=== PATIENT | male | born 1985 | race Caucasian/White ===

== ENCOUNTER 2017-08-11 08:31 | Emergency (ER) | payer MEDICAID ==
[2017-08-11] MEDS ORDERED: NORMAL SALINE 1000 ML 1,000 ML IV ONE (08:45)
--- NOTE | 2017-08-11 09:18 | RADIOLOGY REPORT (SQ) ---
EXAM DESCRIPTION: CT HEAD WITHOUT COMPLETED DATE/TIME: 08/11/2017 9:09 am REASON FOR STUDY: sz head injury COMPARISON: None. TECHNIQUE: Axial images acquired through the brain without intravenous contrast. Images reviewed wi th bone, brain and subdural windows. Images stored on PACS. All CT scanners at this facility use dose modulation, iterative reconstruction, and/or weight based d osing when appropriate to reduce radiation dose to as low as reasonably achievable (ALARA). [facility]: Dose Right [facility]: CareDose [facility]: Dose Right [facility]: Teradose 4D [facility]: [employer] RADIATION DOSE: Up-to-date CT equipment and radiation dose reduction techniques were employed. CTDIv ol: 64.6 mGy. DLP: 1163 mGy-cm. mGy. LIMITATIONS: Motion artifact FINDINGS: Motion artifact on today's study. On the images without motion, there is no gross CT evid ence of large territory acute ischemic change, acute intracranial hemorrhage, mass effect, or midline shift. Bone windows demonstrate minimal inflammatory change in the left frontal and right ethmoid air cells. No acute calvarial fracture. IMPRESSION: Motion artifact. Limited negative study. EVIDENCE OF ACUTE STROKE: NO. COMMENT: Quality ID # [id number]: Final reports with documentation of one or more dose reduction techniques (e.g., Automated exposure control, adjustment of the mA and/or kV according to patient size, use of iterative reconstruction technique) TECHNICAL DOCUMENTATION: JOB ID: [id number] [employer]- All Rights Reserved
[2017-08-11 09:19] LABS: ABSOLUTE EOSINOPHILS # (AUTO) 0.3 10^3/uL (0.0-0.6); ABSOLUTE LYMPHOCYTES (AUTO) 1.2 10^3/uL (0.5-4.7); ABSOLUTE MONOCYTES (AUTO) 0.5 10^3/uL (0.1-1.4); ABSOLUTE NEUT (AUTO) 6.2 10^3/uL (1.7-8.2); BASOPHILS % (AUTO) 0.5 % (0-2); EOSINOPHILS % (AUTO) 3.1 % (0-6); HEMATOCRIT 44.6 % (37.9-51.0); HEMOGLOBIN 15.4 g/dL (13.5-17.0); HGB HCT DIFFERENCE 1.6; LYMPHOCYTES % (AUTO) 14.7 % (13-45); MEAN CORPUSCULAR HEMOGLOBIN 31.5 pg (27.0-33.4); MEAN CORPUSCULAR HGB CONC 34.6 g/dL (32.0-36.0); MEAN CORPUSCULAR VOLUME 91 fl (80-97); MONOCYTES % (AUTO) 5.6 % (3-13); RED CELL DISTRIBUTION WIDTH 12.8 % (11.5-14.0); SEGMENTED NEUTROPHILS % (AUTO) 76.1 % (42-78); WHITE BLOOD COUNT 8.2 10^3/uL (4.0-10.5)
[2017-08-11] MEDS ORDERED: PROCHLORPERAZINE EDISYLATE INJ 10 MG/2 ML VIAL IV ONE (09:27)
[2017-08-11] MEDS ORDERED: ONDANSETRON HCL INJ/PF 4 MG/2 ML SDV IV ONE (09:27)
[2017-08-11 09:43] LABS: ALANINE AMINOTRANSFERASE 23 U/L (21-72); ALBUMIN 4.4 g/dL (3.5-5.0); ALKALINE PHOSPHATASE 98 U/L (38-126); ANION GAP 9 (5-19); ASPARTATE AMINO TRANSFERASE 26 U/L (17-59); BILIRUBIN,DIRECT 0.5 mg/dL (0.0-0.4); BILIRUBIN,TOTAL 0.7 mg/dL (0.2-1.3); BLOOD UREA NITROGEN 12 mg/dL (7-20); CALCIUM 9.4 mg/dL (8.4-10.2); CARBON DIOXIDE 30 mmol/L (22-30); CHLORIDE 103 mmol/L (98-107); CREATININE RESULT 0.96 mg/dL (0.52-1.25); GLUCOSE 90 mg/dL (75-110); LIPASE 50.2 U/L (23-300); POTASSIUM 4.6 mmol/L (3.6-5.0); SODIUM 142.1 mmol/L (137-145); TOTAL PROTEIN 7.1 g/dL (6.3-8.2)
[2017-08-11 09:44] LABS: ALCOHOL < 10 mg/dL (NONE DETECTED)
[2017-08-11] MEDS ORDERED: DIPHENHYDRAMINE HCL 50 MG/ML VIAL IV ONE (09:58)
--- NOTE | 2017-08-11 10:18 | ER Document Report ---
ED General - General Chief Complaint: Head Injury Stated Complaint: FALL HEAD INJURY Time Seen by Provider: 08/11/17 08:43 TRAVEL OUTSIDE OF THE [place]. IN LAST 30 DAYS: No - HPI Patient complains to provider of: Seizure head injury Notes: Patient coming in for evaluation of a seizure. Seizure was witnessed by the . states patient was standing in the kitchen when he fell to the ground having generalized jerking movement patient was not responding to her verbally during the episode. States lasted for approximately 2-3 minutes. Patient states has a history of seizures patient is not on any antiepileptic medication patient states TBI after returning from [place] is when his seizure started. Patient has never had an EEG or seen a neurologist. Patient currently is not postictal complains of a posterior headache where he hit the floor. Patient denies any fever chills nausea vomiting diarrhea. Patient denies any smoking alcohol or drug abuse. - Related Data Allergies/Adverse Reactions: No Known Allergies Allergy (Verified 01/31/17 13:31) Past Medical History - Social History Smoking Status: Never Smoker Chew tobacco use (# tins/day): Yes - occasionally Frequency of alcohol use: Occasional Drug Abuse: None Family History: Reviewed & Not Pertinent Renal/ Medical History: Denies: Hx Peritoneal Dialysis Past Surgical History: Reports: Hx Oral Surgery - Immunizations Hx Diphtheria, Pertussis, Tetanus Vaccination: Yes Review of Systems - Review of Systems Constitutional: No symptoms reported EENT: No symptoms reported Cardiovascular: No symptoms reported Respiratory: No symptoms reported Gastrointestinal: No symptoms reported Genitourinary: No symptoms reported Male Genitourinary: No symptoms reported Musculoskeletal: No symptoms reported Skin: No symptoms reported Hematologic/Lymphatic: No symptoms reported Neurological/Psychological: Seizure, Headaches -: Yes All other systems reviewed and negative Physical Exam - Vital signs Vitals: Temp Pulse Resp BP Pulse Ox 98.3 F 61 18 134/82 H 100 08/11/17 08:35 08/11/17 08:35 08/11/17 08:35 08/11/17 08:35 08/11/17 08:35 Interpretation: Normal - General General appearance: Appears well, Alert - HEENT Head: Normocephalic, Atraumatic Eyes: Normal Pupils: PERRL - Respiratory Respiratory status: No respiratory distress Chest status: Nontender Breath sounds: Normal Chest palpation: Normal - Cardiovascular Rhythm: Regular Heart sounds: Normal auscultation Murmur: No - Abdominal Inspection: Normal Distension: No distension Bowel sounds: Normal Tenderness: Nontender Organomegaly: No organomegaly - Back Back: Normal, Nontender - Extremities General upper extremity: Normal inspection, Nontender, Normal color, Normal ROM , Normal temperature General lower extremity: Normal inspection, Nontender, Normal color, Normal ROM , Normal temperature, Normal weight bearing. No: Hermelinda's sign - Neurological Neuro grossly intact: Yes Cognition: Normal Orientation: AAOx4 [place] Coma Scale Eye Opening: Spontaneous [place] Coma Scale Verbal: Oriented [place] Coma Scale Motor: Obeys Commands [place] Coma Scale Total: 15 Speech: Normal Motor strength normal: LUE, RUE, LLE, RLE Sensory: Normal - Psychological Associated symptoms: Normal affect, Normal mood - Skin Skin Temperature: Warm Skin Moisture: Dry Skin Color: Normal Course - Re-evaluation Re-evalutation: 08/11/17 14:30 Breakthrough seizure with known seizure disorder and previous neurology evaluation. Now returned to neuro baseline. Labs reviewed. No indication of new or acute process. Patient appears safe for discharge with observation and close outpatient F/U with PCP or neurology. Seizure warnings discussed with patient / family. Patient was given Compazine and Zofran for his headache. Patient after receiving the Compazine to become agitated did receive Benadryl. No concerning etiology and did explain to the patient his need to follow-up with neurology for specific testing. After discharge patient CDS to return showing positive for cocaine and marijuana possible underlying etiology for the patient' s symptoms. - Vital Signs Vital signs: Temp Pulse Resp BP Pulse Ox 98.3 F 61 17 126/66 H 99 08/11/17 08:35 08/11/17 08:35 08/11/17 10:44 08/11/17 10:44 08/11/17 10:44 - Laboratory Result Diagrams: 08/11/17 08:56 08/11/17 08:56 Laboratory results interpreted by me: 08/11/17 08:56 Direct Bilirubin 0.5 H Discharge - Discharge Clinical Impression: Seizure, Cocaine abuse Head injury Qualifiers: Encounter type: initial encounter Qualified Code(s): S09.90XA - Unspecified injury of head, initial encounter Condition: Good Disposition: HOME, SELF-CARE Instructions: Head Injury Precautions ([facility]), Neurologist, New Seizure ([facility]), Seizure, Known Epileptic ([facility]) Additional Instructions: At this time your head CT laboratory studies not show any signs of concerning pathology. I would highly recommend she follow-up with your primary care physician and neurologist for further evaluation of your symptoms. Prescriptions: Ondansetron [Zofran Odt 4 mg Tablet] 1 - 2 tab PO Q4H PRN #15 tab.rapdis PRN Reason: For Nausea/Vomiting Referrals: RADHA JOHNSON DO [Primary Care Provider] - Follow up as needed
[2017-08-11 10:27] LABS: APPEARANCE,URINE CLEAR; BILIRUBIN,URINE NEGATIVE (NEGATIVE); GLUCOSE, URINE NEGATIVE (NEGATIVE); KETONES,URINE NEGATIVE (NEGATIVE); LEUKOCYTE ESTERASE,URINE NEGATIVE (NEGATIVE); NITRITE,URINE NEGATIVE (NEGATIVE); PROTEIN,URINE NEGATIVE (NEGATIVE); URINE SPECIFIC GRAVITY 1.006; UROBILINOGEN,URINE NEGATIVE mg/dL (<2.0)
[2017-08-11 10:43] LABS: URINE BARBITURATES SCREEN NEGATIVE; URINE METHADONE SCREEN NEGATIVE; URINE OPIATES LOW NEGATIVE; URINE PHENCYCLIDINE SCREEN NEGATIVE
[2017-08-11 10:48] VITALS: BP 126/66
== END 2017-08-11 10:48 | disposition home or self-care (01) ==
LOC: ER 08:31
DX: G40.909 Epilepsy, unspecified, not intractable, without status epilepticus (principal); S09.90XA Unspecified injury of head, initial encounter; R51 Headache; W18.39XA Other fall on same level, initial encounter; Y93.89 Activity, other specified; F14.10 Cocaine abuse, uncomplicated; R45.1 Restlessness and agitation; Z72.0 Tobacco use; Z87.820 Personal history of traumatic brain injury
CPT/HCPCS: 99284; 96361; 96374; 96375; 36415; 80307 ×2; 83690; 85025; 80053; 81001; 70450; J1200; J0780; J2405; J7030

== ENCOUNTER → 2017-09-03 | Outpatient (CLI) | payer MEDICAID ==
--- NOTE | 2017-09-03 15:14 | RADIOLOGY REPORT (SQ) ---
EXAM DESCRIPTION: MRI HEAD WITHOUT COMPLETED DATE/TIME: 09/03/2017 12:16 pm REASON FOR STUDY: POST TRAUMATIC HEADACHE G44.319 ACUTE POST-TRAUMATIC HEADACHE, NOT INTRACTABLE COMPARISON: None. TECHNIQUE: Multiplanar imaging includes non-contrasted T1, T2, FLAIR, and diffusion with ADC map seq uences. Images stored on PACS. LIMITATIONS: None. FINDINGS: ANATOMY: No anomalies. Normal vascular flow voids. Pituitary fossa normal. CSF SPACES: Normal in size and contour. No hemorrhage. CEREBRUM: Sulci and gyri normal in size and contour. Normal white matter signal on FLAIR imaging. No evidence of hemorrhage, mass, or extraaxial fluid collection. POSTERIOR FOSSA: No signal alteration. No hemorrhage. No edema, masses or mass effect. Internal dell tory canals, cerebello-pontine angles, mastoids normal. DIFFUSION IMAGING: Negative for acute or sub-acute infarction. ORBITS: No masses. Globes normal. PARANASAL SINUSES: No fluid levels. Mucosa normal. OTHER: Susceptibility Imaging-No T2* evidence of abnormal parenchymal iron deposition. IMPRESSION: NORMAL MRI OF THE BRAIN WITHOUT INTRAVENOUS GADOLINIUM CONTRAST. EVIDENCE OF ACUTE STROKE: NO. TECHNICAL DOCUMENTATION: JOB ID: [id number] [employer]- All Rights Reserved
== END ==
LOC: RAD 11:35
PROVIDERS: ATTEND Internal Medicine
DX: G44.319 Acute post-traumatic headache, not intractable (principal)
CPT/HCPCS: 70551

== ENCOUNTER 2018-11-29 08:55 | Emergency (ER) | payer MEDICAID, OTHER ==
[2018-11-29] MEDS ORDERED: FENTANYL CITRATE INJ/PF 100 MCG/2 ML AMPUL IV ONE ×2 (09:05→09:31)
--- NOTE | 2018-11-29 09:31 | ER Document Report ---
ED Fall - General Chief Complaint: Fall Stated Complaint: FALL,BILATERAL LEG FOOT INJURY Time Seen by Provider: 11/29/18 09:05 TRAVEL OUTSIDE OF THE U.S. IN LAST 30 DAYS: No - HPI Notes: Patient is a 33-year-old male that presents to the emergency department for chief complaint of bilateral foot and ankle pain. Patient fell off of scaffolding while trying to climb down. He fell a total of about 10 or 11 feet. He landed flat-footed and then sat down. He denied head injury or loss of consciousness. He denies any pain in his head, neck, chest, back, hips, pelvis or knees. He is complaining of pain in bilateral feet and ankles. The pain is sharp and severe. It is worse with movement. He denies any relieving factors. This fall occurred just prior to coming in the emergency room. He was seen in urgent care and referred to the ED for further management. He has not received any pain medication yet. Past Medical History: Negative Past Surgical History: [place] teeth removal Social History: Daily tobacco. Denies drugs and alcohol Family History: Reviewed and noncontributory for presenting illness Allergies: Reviewed, see documented allergy list. REVIEW OF SYSTEMS: CONSTITUTIONAL : No fever No chills No diaphoresis No recent illness EENT: No vision changes No congestion No sore throat CARDIOVASCULAR: No chest pain No palpitations RESPIRATORY: No shortness of breath No cough No difficulty breathing GASTROINTESTINAL: No abdominal pain No nausea No vomiting No diarrhea GENITOURINARY: No dysuria No hematuria No difficulty urinating MUSCULOSKELETAL: No back pain Bilateral foot and ankle pain No arm pain SKIN: No rashes No lesions LYMPHATIC: No swollen, enlarged glands. NEUROLOGICAL: No lightheadedness No headache No weakness No paresthesias PSYCHIATRIC: No anxiety No depression PHYSICAL EXAMINATION: Vital signs reviewed, nursing noted reviewed. GENERAL: Well-appearing, well-nourished and in no acute distress. HEAD: Atraumatic, normocephalic. EYES: Eyes appear normal, extraocular movements intact, sclera anicteric, conjunctiva are normal. ENT: nares patent, oropharynx clear without exudates. Moist mucous membranes. NECK: Normal range of motion, supple without lymphadenopathy, no midline spinal tenderness LUNGS: Breath sounds clear to auscultation bilaterally and equal. No wheezes rales or rhonchi. HEART: Tachycardic rate and regular rhythm without murmurs ABDOMEN: Soft, nontender, normoactive bowel sounds. No rebound, guarding, or rigidity. No masses appreciated. Back: No midline thoracic or lumbar tenderness, normal range of motion EXTREMITIES: Normal hips and knee exam bilaterally. Pelvis stable. +2/4 bilateral DP and PT pulses. Right ankle: Lateral malleolar tenderness and calcaneal tenderness, normal range of motion, no deformity, no midfoot or phalanx tenderness. Left ankle: Deformity, diffuse ankle joint tenderness, calcaneal tenderness, decreased range of motion, no midfoot or phalanx tenderness NEUROLOGICAL: No focal neurological deficits. Moves all extremities spontaneously Motor and sensory grossly intact on exam. PSYCH: Agitated and anxious SKIN: Warm, Dry, normal turgor, no rashes or lesions noted on exposed skin - Related data Allergies/Adverse Reactions: No Known Allergies Allergy (Verified 01/31/17 13:31) Past Medical History - Social History Smoking Status: Unknown if Ever Smoked Family History: Reviewed & Not Pertinent Patient has suicidal ideation: No Patient has homicidal ideation: No Renal/ Medical History: Denies: Hx Peritoneal Dialysis Past Surgical History: Reports: Hx Oral Surgery - Immunizations Hx Diphtheria, Pertussis, Tetanus Vaccination: Yes Course - Re-evaluation Re-evalutation: 11/29/18 09:31 Vitals reviewed. Nursing notes reviewed. Patient given fentanyl for pain and had pain, he was given a second dose of fentanyl. 11/29/18 10:20 Patient continuing to have pain but just recently received his second dose of fentanyl. He will now be given Toradol. His x-rays show bilateral calcaneal fractures 11/29/18 12:57 Patient has required multiple doses of IV pain medication, he is currently feeling better. On each of my reevaluation's patient has been able to move his back through full range of motion and is not having any spinal tenderness, he is also denying any pain in his back currently. Spinal imaging not currently indicated. I discussed his care with Dr. Cruz who feels he is going to require surgery and recommends transfer to [facility] for foot and ankle specialist. I discussed patient's care with orthopedics at [facility] who requests that patient be admitted to the trauma service. Patient's care was then discussed with Dr. Ganga Pearson who accepts patient for transfer. Patient is in agreement with this plan. He is stable for transportation currently. Discharge - Discharge Clinical Impression: Bilateral calcaneal fractures Qualifiers: Encounter type: initial encounter Fracture type: closed Qualified Code(s): S92.001A - Unspecified fracture of right calcaneus, initial encounter for closed fracture Condition: Stable Disposition: [facility] Referrals: LEDA GUTIERREZ MD [COMMUNITY BASED STAFF] - Follow up as needed
[2018-11-29] MEDS ORDERED: KETOROLAC TROMETHAMINE INJ/PF 30 MG/1 ML SDV IV ONE (09:58)
--- NOTE | 2018-11-29 10:09 | RADIOLOGY REPORT (SQ) ---
EXAM DESCRIPTION: FOOT BILATERAL 3 VIEWS; ANKLE BILATERAL 3 VIEWS MIN COMPLETED DATE/TIME: 11/29/2018 9:39 am REASON FOR STUDY: fall COMPARISON: None. NUMBER OF VIEWS: Three views. TECHNIQUE: AP, lateral and oblique radiographic images acquired of the right and left foot. LIMITATIONS: None. FINDINGS: Comminuted fractures of the calcaneus bilaterally with disruption of Boehler's angle. No other fractures identified. IMPRESSION: Bilateral calcaneal fractures. TECHNICAL DOCUMENTATION: JOB ID: [id number] [employer]- All Rights Reserved Reading location - IP/workstation name: [email or web address]
--- NOTE | 2018-11-29 10:09 | RADIOLOGY REPORT (SQ) ---
EXAM DESCRIPTION: FOOT BILATERAL 3 VIEWS; ANKLE BILATERAL 3 VIEWS MIN COMPLETED DATE/TIME: 11/29/2018 9:39 am REASON FOR STUDY: fall COMPARISON: None. NUMBER OF VIEWS: Three views. TECHNIQUE: AP, lateral and oblique radiographic images acquired of the right and left foot. LIMITATIONS: None. FINDINGS: Comminuted fractures of the calcaneus bilaterally with disruption of Boehler's angle. No other fractures identified. IMPRESSION: Bilateral calcaneal fractures. TECHNICAL DOCUMENTATION: JOB ID: [id number] [email or web address]- All Rights Reserved Reading location - IP/workstation name: [email or web address]
[2018-11-29] MEDS ORDERED: HYDROMORPHONE HCL INJ/PF 2 MG/ML AMPULE IV ONE ×3 (10:33→14:27)
[2018-11-29 15:11] VITALS: BP 143/81
== END 2018-11-29 15:10 | disposition short-term general hospital (02) ==
LOC: ER 08:55
DX: S92.001A Unspecified fracture of right calcaneus, initial encounter for closed fracture (principal); S92.002A Unspecified fracture of left calcaneus, initial encounter for closed fracture; W17.89XA Other fall from one level to another, initial encounter; Y99.0 Civilian activity done for income or pay
CPT/HCPCS: 96376; 99284; 96374; 96375; 73630; 73610; J3010; J1885; J1170

== ENCOUNTER 2020-05-03 12:33 | Emergency (ER) | payer SELFPAY ==
[2020-05-03 12:40] VITALS: BP 153/82
--- NOTE | 2020-05-03 12:49 | ER Document Report ---
ED Medical Screen (RME) - General Chief Complaint: Leg Pain Stated Complaint: RIGHT KNEE/LEG PAIN, SKIN SORE Time Seen by Provider: 05/03/20 12:41 Mode of Arrival: Wheelchair Information source: Patient Notes: 34-year-old male presented to ED for redness swelling and pain to the right knee for the last 3 days. He states he went to her primary care doctor and they told him it was herpes and put him on Valtrex. He also has sores left axilla that are not to the point that they need to be I&D but there are multiple pustules in this area. Does have a swollen possible abscess just below the right knee. I have sent him for x-rays and ordered blood cultures CBC and chemistry. I have greeted and performed a rapid initial assessment of this patient. A comprehensive ED assessment and evaluation of the patient, analysis of test results and completion of medical decision making process will be conducted by an additional ED providers. TRAVEL OUTSIDE OF THE [place]. IN LAST 30 DAYS: No - Related Data Allergies/Adverse Reactions: No Known Allergies Allergy (Verified 05/03/20 12:41) Past Medical History - Social History Chew tobacco use (# tins/day): No Frequency of alcohol use: Social Drug Abuse: None Renal/ Medical History: Denies: Hx Peritoneal Dialysis Past Surgical History: Reports: Hx Oral Surgery - Immunizations Hx Diphtheria, Pertussis, Tetanus Vaccination: Yes Physical Exam - Vital signs Vitals: Temp Pulse Resp BP Pulse Ox 98.7 F 88 16 153/82 H 99 05/03/20 12:38 05/03/20 12:38 05/03/20 12:38 05/03/20 12:38 05/03/20 12:38 Course - Vital Signs Vital signs: Temp Pulse Resp BP Pulse Ox 98.7 F 88 16 153/82 H 99 05/03/20 12:42 05/03/20 12:38 05/03/20 12:38 05/03/20 12:38 05/03/20 12:38
--- NOTE | 2020-05-03 13:26 | RADIOLOGY REPORT (SQ) ---
EXAM DESCRIPTION: KNEE RIGHT 4 VIEWS IMAGES COMPLETED DATE/TIME: 05/03/2020 11:58 am REASON FOR STUDY: Swelling redness right knee. Diffuse right knee pain. No known injury. COMPARISON: None. NUMBER OF VIEWS: Four views. TECHNIQUE: AP, lateral, and both oblique radiographic images acquired of the right knee. LIMITATIONS: None. FINDINGS: MINERALIZATION: Normal. BONES: No acute fracture or dislocation. No worrisome bone lesions. JOINT: No effusion. SOFT TISSUES: No soft tissue swelling. No radio-opaque foreign body. OTHER: No other significant finding. IMPRESSION: NEGATIVE STUDY OF THE RIGHT KNEE. NO RADIOGRAPHIC EVIDENCE OF ACUTE INJURY. TECHNICAL DOCUMENTATION: JOB ID: [id number] [employer]- All Rights Reserved Reading location - IP/workstation name: [email or web address]
[2020-05-03] MEDS ORDERED: VANCOMYCIN HCL INJ 1000 MG VIAL IV ONE (13:40)
[2020-05-03] MEDS ORDERED: AMPICILLIN SOD/SULBACTAM 3 GM VIAL IV ONE (13:41)
[2020-05-03 13:56] LABS: ABSOLUTE BASOPHILS # (AUTO) 0.1 10^3/uL (0.0-0.2); ABSOLUTE EOSINOPHILS # (AUTO) 0.2 10^3/uL (0.0-0.6); ABSOLUTE LYMPHOCYTES (AUTO) 1.5 10^3/uL (0.5-4.7); ABSOLUTE MONOCYTES (AUTO) 0.7 10^3/uL (0.1-1.4); ABSOLUTE NEUT (AUTO) 7.1 10^3/uL (1.7-8.2); BASOPHILS % (AUTO) 0.8 % (0-2); EOSINOPHILS % (AUTO) 2.5 % (0-6); HEMATOCRIT 42.3 % (37.9-51.0); LYMPHOCYTES % (AUTO) 15.9 % (13-45); MEAN CORPUSCULAR HEMOGLOBIN 32.1 pg (27.0-33.4); MEAN CORPUSCULAR HGB CONC 35.4 g/dL (32.0-36.0); MEAN CORPUSCULAR VOLUME 91 fl (80-97); MONOCYTES % (AUTO) 6.9 % (3-13); PLATELET COUNT 234 10^3/uL (150-450); RED BLOOD COUNT 4.66 10^6/uL (4.35-5.55); RED CELL DISTRIBUTION WIDTH 13.9 % (11.5-14.0); SEGMENTED NEUTROPHILS % (AUTO) 73.9 % (42-78); TOTAL CELLS COUNTED % (AUTO) 100 %; WHITE BLOOD COUNT 9.7 10^3/uL (4.0-10.5)
[2020-05-03 13:59] LABS: ALKALINE PHOSPHATASE 117 U/L (38-126); ANION GAP 9 (5-19); ASPARTATE AMINO TRANSFERASE 34 U/L (17-59); BILIRUBIN,TOTAL 0.8 mg/dL (0.2-1.3); BLOOD UREA NITROGEN 13 mg/dL (7-20); CALCIUM 9.1 mg/dL (8.4-10.2); CARBON DIOXIDE 24 mmol/L (22-30); CHLORIDE 105 mmol/L (98-107); GLUCOSE 96 mg/dL (75-110); POTASSIUM 4.8 mmol/L (3.6-5.0); TOTAL PROTEIN 6.7 g/dL (6.3-8.2)
[2020-05-03] MEDS ORDERED: HYDROCODONE/ACETAMINOPHEN 5-325 MG TABLET PO ONE (15:01)
[2020-05-03] MEDS ORDERED: HYDROMORPHONE HCL INJ/PF 2 MG/ML AMPULE IV ONE (17:03)
[2020-05-03] MEDS ORDERED: ONDANSETRON HCL INJ/PF 4 MG/2 ML SDV IV ONE (17:03)
[2020-05-03] MEDS ORDERED: HYDROCODONE/ACETAMINOPHEN 5-325 MG (6 TAB/ER DISP) PO PRN (17:22)
--- NOTE | 2020-05-03 17:23 | ER Document Report ---
Entered by GAYE LEO SCRIBE 05/03/20 [id number] Acting as scribe for:YANE LUIS DO ED General - General Chief Complaint: Knee Pain Stated Complaint: RIGHT KNEE/LEG PAIN, SKIN SORE Time Seen by Provider: 05/03/20 12:41 Mode of Arrival: Wheelchair Information source: Patient Notes: This 34 year old male patient presents to the emergency department today with pain in his right lower leg since yesterday morning. Patient reports he has noticed redness of his right lower leg for the past x3 days and the pain began yesterday. Patient states he [facility] [place] [facility] days ago. Patient states he has red bumps under his left armpit and has a history of herpes, but has not had a outbreak before. Patient states he is up to date on his tetanus vaccination. TRAVEL OUTSIDE OF THE [place] IN LAST 30 DAYS: No - Related Data Allergies/Adverse Reactions: No Known Allergies Allergy (Verified 05/03/20 12:41) Past Medical History - General Information source: Patient - Social History Smoking Status: Never Smoker Cigarette use (# per day): No Chew tobacco use (# tins/day): No Frequency of alcohol use: Social Drug Abuse: None Family History: Reviewed & Not Pertinent Patient has homicidal ideation: No Infectious Medical History: Reports: Other - Herpes Past Surgical History: Reports: Hx Oral Surgery - Immunizations Hx Diphtheria, Pertussis, Tetanus Vaccination: Yes Review of Systems - Review of Systems Constitutional: No symptoms reported EENT: No symptoms reported Cardiovascular: No symptoms reported Respiratory: No symptoms reported Gastrointestinal: No symptoms reported Genitourinary: No symptoms reported Male Genitourinary: No symptoms reported Musculoskeletal: See HPI, Other - Right lower leg pain and redness Skin: See HPI, Other - red bumps - L armpit Hematologic/Lymphatic: No symptoms reported Neurological/Psychological: No symptoms reported -: Yes All other systems reviewed and negative Physical Exam - Vital signs Vitals: Temp Pulse Resp BP Pulse Ox 98.7 F 88 16 153/82 H 99 05/03/20 12:38 05/03/20 12:38 05/03/20 12:38 05/03/20 12:38 05/03/20 12:38 - General General appearance: Appears well, Alert - HEENT Head: Normocephalic, Atraumatic Eyes: Normal Pupils: PERRL - Respiratory Respiratory status: No respiratory distress Chest status: Nontender Breath sounds: Normal Chest palpation: Normal - Cardiovascular Rhythm: Regular Heart sounds: Normal auscultation Murmur: No - Abdominal Inspection: Normal Distension: No distension Bowel sounds: Normal Tenderness: Nontender - Extremities General upper extremity: No: Edema Notes: Pustular rash under the left armpit. Erythema and soft tissue swelling of the right lower leg. Tenderness with palpation to the right lower leg. No acute deformity. - Neurological Neuro grossly intact: Yes Cognition: Normal Orientation: AAOx4 - Psychological Associated symptoms: Normal affect, Normal mood - Skin Skin Temperature: Warm Skin Moisture: Dry Skin Color: Normal Course - Re-evaluation Re-evalutation: 05/03/20 17:18 MDM 34 year old male with cellulitis right lower leg and some pustules under left arm. Leg looks like strep or staph and will treat as such. MRSA is possible and will place on bactrim. Discussed recheck in 2 days. He expressed understanding. - Vital Signs Vital signs: Temp Pulse Resp BP Pulse Ox 98.7 F 88 16 153/82 H 99 05/03/20 12:42 05/03/20 12:38 05/03/20 12:38 05/03/20 12:38 05/03/20 12:38 - Laboratory Result Diagrams: 05/03/20 13:00 05/03/20 13:00 - Diagnostic Test Radiology reviewed: Reports reviewed Discharge - Discharge Clinical Impression: Cellulitis Qualifiers: Site of cellulitis: extremity Site of cellulitis of extremity: lower extremity Laterality: right Qualified Code(s): L03.115 - Cellulitis of right lower limb Condition: Stable Disposition: HOME, SELF-CARE Instructions: Cellulitis ([facility]), Use of Crutches ([facility]), Oral Narcotic Medication ([facility]) Additional Instructions: Take your medicine as directed. Have the leg rechecked in 2 days - sooner if worse - and please return here for increasing pain redness or drainage from the leg. Recheck with your doctor or here in the Emergency Department. Prescriptions: Amoxicillin/Potassium Clav [Augmentin 875-125 Tablet] 1 tab PO Q12 #20 tablet Sulfamethoxazole/Trimethoprim [Bactrim Ds Tablet] 1 each PO BID #20 tablet Forms: Return to Work I personally performed the services described in the documentation, reviewed and edited the documentation which was dictated to the scribe in my presence, and it accurately records my words and actions.
== END 2020-05-03 17:56 | disposition home or self-care (01) ==
LOC: ER 12:33
DX: L03.115 Cellulitis of right lower limb (principal); L08.9 Local infection of the skin and subcutaneous tissue, unspecified
CPT/HCPCS: 99283; 96374; 96375; 36415; 87040; 85025; 80053; 73564; J0295; J1170; J2405; J3370

== ENCOUNTER 2020-09-26 11:54 | Emergency (ER) | payer SELFPAY ==
--- NOTE | 2020-09-26 12:11 | ER Document Report ---
ED Medical Screen (RME) - General Chief Complaint: Congestion Stated Complaint: CONGESTION/MUSCLE PAIN/HEADACHE/DIARRHEA Time Seen by Provider: 09/26/20 12:09 Notes: HPI: 35-year-old male presenting for cough and congestion with shortness of br eath and body ache and diarrhea over the last week. Diarrhea only started yesterday. Does feel short of breath. Is a smoker. Patient is concerned about Covid. PHYSICAL EXAMINATION: Mildly congested cough is noted, lung sounds are slightly decreased with very slight expiratory wheezing noted I have greeted and performed a rapid initial assessment of this patient. A comprehensive ED assessment and evaluation of the patient, analysis of test results and completion of medical decision making process will be conducted by an additional ED providers. TRAVEL OUTSIDE OF THE [place] IN LAST 30 DAYS: No - Related Data Allergies/Adverse Reactions: No Known Allergies Allergy (Verified 05/03/20 12:41) Past Medical History Renal/ Medical History: Denies: Hx Peritoneal Dialysis Past Surgical History: Reports: Hx Oral Surgery - Immunizations Hx Diphtheria, Pertussis, Tetanus Vaccination: Yes Physical Exam - Vital signs Vitals: Temp Pulse Resp BP Pulse Ox 98.9 F 73 16 125/91 H 98 09/26/20 12:08 09/26/20 12:08 09/26/20 12:08 09/26/20 12:08 09/26/20 12:08 Course - Vital Signs Vital signs: Temp Pulse Resp BP Pulse Ox 98.9 F 73 16 125/91 H 98 09/26/20 12:08 09/26/20 12:08 09/26/20 12:08 09/26/20 12:08 09/26/20 12:08
[2020-09-26 13:14] LABS: A TYPE INFLUENZA AG NEGATIVE (NEGATIVE); B INFLUENZA AG NEGATIVE (NEGATIVE)
--- NOTE | 2020-09-26 13:30 | RADIOLOGY REPORT (SQ) ---
EXAM DESCRIPTION: CHEST SINGLE VIEW IMAGES COMPLETED DATE/TIME: 09/26/2020 1:06 pm REASON FOR STUDY: cough COMPARISON: 02/03/2012 EXAM PARAMETERS: NUMBER OF VIEWS: One view. TECHNIQUE: Single frontal radiographic view of the chest acquired. RADIATION DOSE: NA LIMITATIONS: None. FINDINGS: LUNGS AND PLEURA: No opacities, masses or pneumothorax. No pleural effusion. MEDIASTINUM AND HILAR STRUCTURES: No masses. Contour normal. HEART AND VASCULAR STRUCTURES: Heart normal in size. Normal vasculature. BONES: No acute findings. HARDWARE: None in the chest. OTHER: No other significant finding. IMPRESSION: NO ACUTE RADIOGRAPHIC FINDING IN THE CHEST. TECHNICAL DOCUMENTATION: JOB ID: [id number] [employer]- All Rights Reserved Reading location - IP/workstation name: [email or web address]
[2020-09-26] MEDS ORDERED: DEXAMETHASONE 4 MG TABLET PO ONE (14:21)
[2020-09-26] MEDS ORDERED: ALBUTEROL SULFATE 0.083% NEB 2.5 MG/3 ML AMPUL NEB ONE (14:22)
--- NOTE | 2020-09-26 14:26 | ER Document Report ---
ED General - General Chief Complaint: Congestion Stated Complaint: CONGESTION/MUSCLE PAIN/HEADACHE/DIARRHEA Time Seen by Provider: 09/26/20 12:09 Mode of Arrival: Ambulatory Information source: Patient Notes: Patient is an otherwise healthy 35-year-old male coming in today with chief complaint of fever, chills, body aches, cough, congestion, shortness of breath. He uses dip but does not smoke. He does smoke a lot of marijuana. Denies nausea vomiting and diarrhea. TRAVEL OUTSIDE OF THE [place] IN LAST 30 DAYS: No - Related Data Allergies/Adverse Reactions: No Known Allergies Allergy (Verified 05/03/20 12:41) Past Medical History - Social History Smoking Status: Current Every Day Smoker Family History: Reviewed & Not Pertinent Renal/ Medical History: Denies: Hx Peritoneal Dialysis Past Surgical History: Reports: Hx Oral Surgery - Immunizations Hx Diphtheria, Pertussis, Tetanus Vaccination: Yes Review of Systems - Review of Systems Notes: Constitutional: + Fevers, chills, weakness EENT: No eye redness. No eye pain. No ear pain. No sore throat. Cardiovascular: No chest pain. No palpitations. Respiratory: Positive cough, shortness of breath, wheezes Gastrointestinal: No abdominal pain. No nausea, vomiting, or diarrhea. Genitourinary: Atraumatic. No lesions. No pain. No discharge. Musculoskeletal: Atraumatic. No swelling. No deformities. Skin: No rash or lesions. Lymphatic: No swollen lymph nodes. Neurologic: No headache. No syncope. Psychiatric: No suicidal or homicidal ideation. Physical Exam - Vital signs Vitals: Temp Pulse Resp BP Pulse Ox 98.9 F 73 16 125/91 H 98 09/26/20 12:08 09/26/20 12:08 09/26/20 12:08 09/26/20 12:08 09/26/20 12:08 - Notes Notes: General: Well-developed, well-nourished. In no acute distress. Non-toxic appearing. Cardiac: Well-perfused. Regular rate and rhythm. No murmurs, rubs, or gallops. Pulmonary: Bilateral lung reynolds auscultated. Rhonchi and wheezes especially at the bases bilaterally Abdominal: Non-distended. Non-rigid. Bowels sounds are present in all four quadrants. No guarding or rebound. HEENT: Head is atraumatic. Conjunctivae not reddened. No tearing. PERRL. EOMI. Orbits atraumatic. No periorbital swelling or erythema. Oropharynx is without erythema, swelling, or exudates. Neck: Supple. No adenopathy. No meningismus. Dermatologic: Warm with good turgor. No rash. Atraumatic. Chest: Atraumatic. No chest wall tenderness to palpation. Musculoskeletal: Moves all extremities well. No range of motion deficits. no muscular or joint tenderness. No paraspinal muscle tenderness. no midline spinal tenderness or step-off. Genitourinary: Examination deferred Neurologic: No gross neurologic deficits. Psychiatric: Normal mood. Course - Re-evaluation Re-evalutation: 09/26/20 14:25 Patient highly suspicious for coronavirus. Will start him on some dexamethasone here and do some breathing treatments. Will discharge home with Zithromax, albuterol metered-dose inhaler, and dexamethasone. He will be advised to quarantine per typical protocol until he gets his results. 09/26/20 15:26 Patient feeling somewhat better after some breathing treatments. He does have still some coarse breath sounds in the bases. I think these will start to clear up with serial albuterol usage as well as onset of dexamethasone. I will go ahead and discharge him home with the previously mentioned drug combination. - Vital Signs Vital signs: Temp Pulse Resp BP Pulse Ox 98.9 F 73 16 125/91 H 98 09/26/20 12:08 09/26/20 12:08 09/26/20 12:08 09/26/20 12:08 09/26/20 12:08 - Diagnostic Test Radiology reviewed: Reports reviewed Discharge - Discharge Clinical Impression: Bronchospasm, Person under investigation for COVID-19 Upper respiratory infection Qualifiers: URI type: unspecified viral URI Qualified Code(s): J06.9 - Acute upper respiratory infection, unspecified Condition: Good Disposition: HOME, SELF-CARE Instructions: COVID-19 Guidance for Persons Under Investigation, Upper Respiratory Illness ([facility]) Prescriptions: Dexamethasone [Decadron] 4 mg PO DAILY 5 Days #5 tablet Albuterol Sulfate [Proair HFA Inhalation Aerosol 8.5 gm MDI] 2 puff IH Q4H PRN #1 mdi PRN Reason: Azithromycin [Zithromax 250 mg Tablet] 250 mg PO ASDIR PRN #6 tablet PRN Reason:
[2020-09-26 15:29] VITALS: BP 142/75
== END 2020-09-26 15:50 | disposition home or self-care (01) ==
LOC: ER 11:54
DX: J06.9 Acute upper respiratory infection, unspecified (principal); J98.01 Acute bronchospasm; R50.9 Fever, unspecified; R51.9 Headache, unspecified; M79.10 Myalgia, unspecified site; R05 Cough; R06.02 Shortness of breath; R53.1 Weakness; R06.2 Wheezing; R19.7 Diarrhea, unspecified; Z72.0 Tobacco use; Z20.828 Contact with and (suspected) exposure to other viral communicable diseases
CPT/HCPCS: 94640; 99284; 87635; 87804; 71045; J8540; J7613; C9803